=== PATIENT | female | born 1935 ===

== ENCOUNTER → 2017-05-06 | Outpatient (CLI) | payer OTHER ==
[2017-05-14 12:19] LABS: ANION GAP 11.4 mmol/L (8-16); CARBON DIOXIDE 31 mmol/L (22-29); CHLORIDE 104 mmol/L (98-107); POTASSIUM 2.4 mmol/L (3.5-5.1); SODIUM 144 mmol/L (136-145)
[2017-05-14 12:20] LABS: BLOOD UREA NITROGEN 17 mg/dL (7-26); BUN/CREATININE RATIO 35 (6-25); CALCIUM 8.4 mg/dL (8.4-10.2); CREATININE, SERUM 0.49 mg/dL (0.57-1.11); EST GLOMERULAR FILTRATION RATE > 60 ML/MIN (60-); GLUCOSE 119 mg/dL (74-118)
== END ==
LOC: NPA 13:00
DX: R69 Illness, unspecified (principal)
CPT/HCPCS: 36415; 80048

== ENCOUNTER → 2017-05-07 | Outpatient (CLI) | payer OTHER ==
[2017-05-14 12:22] LABS: CHLORIDE 109 mmol/L (98-107); POTASSIUM 3.8 mmol/L (3.5-5.1); SODIUM 146 mmol/L (136-145)
[2017-05-14 12:23] LABS: ANION GAP 12.8 mmol/L (8-16); BLOOD UREA NITROGEN 19 mg/dL (7-26); BUN/CREATININE RATIO 37 (6-25); CALCIUM 9.1 mg/dL (8.4-10.2); CARBON DIOXIDE 28 mmol/L (22-29); CREATININE, SERUM 0.51 mg/dL (0.57-1.11); EST GLOMERULAR FILTRATION RATE > 60 ML/MIN (60-); GLUCOSE 133 mg/dL (74-118)
== END ==
LOC: NPA 13:40
DX: R69 Illness, unspecified (principal)
CPT/HCPCS: 36415; 80048